=== PATIENT | male | born 1975 | race Caucasian/White ===

== ENCOUNTER 2020-11-28 01:28 | Inpatient (IN) | payer SELFPAY ==
[2021-05-10 09:16] LABS: Estmated Average Glucose 126
[2021-05-10 09:20] LABS: Chol HDL Ratio 3.42 mg/dL (1.0-5.00); Cholesterol 205 mg/dL (0-200); HDL Cholesterol 60 mg/dL (60-100); LDL Cholesterol Calculated 122 mg/dL (50-129); LDL HDL Ratio 2.03 RATIO (0.00-3.22); Triglycerides 114 mg/dL (0-150)
[2021-06-23 10:41] LABS: Creatinine Urine, Random 64 mg/dL (39-259)
[2021-06-23 10:50] LABS: Prostate Specific Antigen 0.014 ng/mL (0-4)
[2021-06-23 13:05] LABS: Microalbum Creatinine Ratio Ur 16 mg/dL (0-20); Microalbumin Random Urine 1 ug/dL (0-20)
[2021-06-23 13:25] LABS: Creatinine Urine, Random 68 mg/dL (39-259); Microalbum Creatinine Ratio Ur 15 mg/dL (0-20); Microalbumin Random Urine 1 ug/dL (0-20)
[2021-06-23 13:37] LABS: Prostate Specific Antigen < 0.014 ng/mL (0-4)
[2021-06-23 13:53] LABS: Iron 12 ug/dL (59-158)
[2021-06-23 14:30] LABS: Unsaturated Iron Binding < 17 ug/dL (112-347)
[2021-06-23 14:38] LABS: Iron 19 ug/dL (59-158); Percent Saturation 5.4 % (20-50); Total Iron Binding Capacity 349 mcg/dl; Unsaturated Iron Binding 330 ug/dL (112-347)
[2021-08-17 09:58] LABS: Troponin(5th) Baseline 18 ng/L (0-15)
[2021-08-17 10:17] LABS: Troponin 5 2HR 12.83 ng/L (0-15)
[2021-08-17 13:32] LABS: Troponin 5 2HR Delta -5.17 ABS# (0-10)
[2021-08-17 13:47] LABS: Troponin 5 6HR 17.64 ng/L (0-15)
[2021-08-17 13:50] LABS: Troponin 5 6HR Delta -0.36 ng/L (0-12)
[2021-08-20 10:44] LABS: Troponin(5th) Baseline 12 ng/L (0-15)
[2021-08-20 12:14] LABS: Troponin 5 2HR 11.33 ng/L (0-15)
[2021-08-20 16:02] LABS: Troponin 5 2HR Delta -0.67 ABS# (0-10)
[2021-08-24 14:00] LABS: Vitamin B12 > 2000 pg/mL (232-1245)
[2021-08-26 14:03] LABS: Add Urine Microscopic? NO; Protein Urine Neg (Negative); Specific Gravity, Urine 1.025 (1.005-1.030); Urine Appearance Clear (CLEAR); Urine Color Yellow (Yellow); pH Urine 5 (5-7)
[2021-08-26 14:04] LABS: Bilirubin Urine Neg (Negative); Blood Urine Neg (Negative); Charge for UA Resulting for Rev; Glucose Urine UA Norm (Normal); Ketones Urine Negative (Negative); Leukocyte Esterase Urine Negative (Negative); Nitrate Urine Negative (Negative); Urobilinogen Urine Norm (Negative)
== END 2020-11-28 01:29 | disposition home or self-care (01) | DRG 951 ==
LOC: OPOB 01:28 → OBGYN 01:28
PROVIDERS: Admitting Provider Family Medicine; Visit Provider Family Medicine
DX: R69 Illness, unspecified (principal); Z53.21 Procedure and treatment not carried out due to patient leaving prior to being seen by health care provider
CPT/HCPCS: 80061; 83036